=== PATIENT | male | born 1965 ===

== ENCOUNTER 2019-05-12 18:24 | Inpatient (IN) ==
[2019-05-12] MEDS: LORazepam 2 MG/1 ML VIAL IV PRN ×2 (20:30→20:40)
[2019-05-12] MEDS ORDERED: LORazepam 2 MG/1 ML VIAL ONE ×2 (20:34→20:39)
[2019-05-12] MEDS ORDERED: NICOTINE 21 MG/24 HR PATCH TRANSDERM PRN (21:10)
[2019-05-12] MEDS ORDERED: ONDANSETRON 4 MG/2 ML VIAL IV PRN (21:10)
[2019-05-12] MEDS ORDERED: ALBUTEROL 2.5 MG/3 ML NEB RESP TX PRN (21:10)
[2019-05-12] MEDS ORDERED: MORPHINE 4 MG/1 ML VIAL IV PRN (21:10)
[2019-05-12] MEDS ORDERED: PANTOPRAZOLE 40 MG VIAL IV SCH (21:30)
[2019-05-12] MEDS ORDERED: THIAMINE INJ 100 MG, FOLIC ACID INJ 1 MG, MULTIVITAMIN INJ 10 ML in SODIUM CHLORIDE 0.9... IV SCH (21:30)
[2019-05-12] MEDS ORDERED: SODIUM CHLORIDE 0.9% 1,000 ML IV SCH (21:30)
[2019-05-12 22:09] LABS: Basophils % 0.2 % (0.0-0.8); Hematocrit 37.5 VOL% (42.0-52.0); Hemoglobin 12.5 GM/DL (14.0-18.0); Immature Granulocytes % 0.1 %; Immature Granulocytes Absolute 0.02 #; Lymphocytes # 0.8 10*3/uL (1.4-4.0); Lymphocytes % 5.3 % (21.2-54.2); Mean Corpuscular HGB Conc 33.3 GM/DL (32-36); Mean Corpuscular Volume 94.5 FL (87-102); Mean Platelet Volume 11.2 FL (9.6-12.0); Monocytes % 4.2 % (1.7-12.7); Neutrophils % 90.2 % (38.7-73.9); Platelet Count 140 T/CUMM (130-400); Red Blood Count 3.97 MC/CUMM (3.8-5.5); Red Cell Distribution Width 14.6 % (9.3-17.3); White Blood Count 14.3 T/CUMM (4-12)
[2019-05-12 22:17] LABS: ABG Base Excess -0.1 MMOL/L (-2.5-2.5); ABG HCO3 24.3 MMOL/L (20-26); ABG Oxygen Saturation 97.2 % (95-100); ABG PCO2 43.4 MM HG (35-48); ABG PH 7.373 (7.35-7.45); ABG TCO2 22.4 MMOL/L (23-27); Allen Test Positive; Pt O2 Delivery Device Simple Mask
[2019-05-12 22:24] LABS: Albumin 3.6 G/DL (3.4-5.0); Bilirubin,Total 1.3 MG/DL (0.2-1.0); Calcium 8.2 MG/DL (8.5-10.1); Total Protein 7.2 G/DL (6.4-8.3)
[2019-05-12] MEDS: FAMOTIDINE 20 MG/2 ML VIAL IV SCH (22:32)
[2019-05-12] MEDS: ENOXAPARIN 40 MG/0.4 ML SYRINGE SUBCUT SCH (22:33)
[2019-05-12] MEDS: 1: THIAMINE INJ 100 MG, FOLIC ACID INJ 1 MG, MULTIVITAMIN INJ 10 ML in SODIUM CHLORIDE 0 IV SCH (22:40)
[2019-05-13] MEDS: LORazepam 2 MG/1 ML VIAL IV PRN ×3 (01:55→13:55)
[2019-05-13 05:23] LABS: Basophils % 0.3 % (0.0-0.8); Hematocrit 37.3 VOL% (42.0-52.0); Hemoglobin 11.8 GM/DL (14.0-18.0); Immature Granulocytes % 0.4 %; Immature Granulocytes Absolute 0.05 #; Lymphocytes # 1.3 10*3/uL (1.4-4.0); Lymphocytes % 11.2 % (21.2-54.2); Mean Corpuscular HGB Conc 31.6 GM/DL (32-36); Mean Corpuscular Volume 96.1 FL (87-102); Mean Platelet Volume 11.4 FL (9.6-12.0); Monocytes % 5.5 % (1.7-12.7); Neutrophils % 82.6 % (38.7-73.9); Platelet Count 134 T/CUMM (130-400); Red Blood Count 3.88 MC/CUMM (3.8-5.5); Red Cell Distribution Width 14.7 % (9.3-17.3); White Blood Count 11.9 T/CUMM (4-12)
[2019-05-13 05:53] LABS: Osmolality,Calculated 285.8 MOS/KG (273-304)
[2019-05-13 06:33] LABS: Apearance,Urine CLOUDY (Clear); Bacteria,Urine Occasional /HPF (Few); Bilirubin,Urine Negative (Negative); Blood, Urine Large mg/dL (Negative); Glucose,Urine (UA) Negative (Negative); Ketones,Urine 20 mg/dL (Negative); Mucus,Urine Many /LPF (Occasional); Nitrite,Urine Negative (Negative); Protein,Urine 100 MG/DL; RBC,Urine 2208 /HPF (0-4); Squamous Epithelial Cell,Urine Occasional /HPF (0-10); Uric Acid Crystals,Urine Occasional /HPF (<1); Urine Specific Gravity 1.018 (1.001-1.035); Urine Urobilinogen < 2.0 EU/DL (0.2-1.0); WBC,Urine 34 /HPF (0-6)
[2019-05-13 06:34] LABS: Urine Color Amber (Yellow)
[2019-05-13] MEDS: PHENYTOIN 100 MG/2 ML VIAL IV SCH ×2 (10:53→17:19)
[2019-05-13] MEDS: FAMOTIDINE 20 MG/2 ML VIAL IV SCH ×2 (10:54→22:03)
[2019-05-13] MEDS: 1: THIAMINE INJ 100 MG, FOLIC ACID INJ 1 MG, MULTIVITAMIN INJ 10 ML in SODIUM CHLORIDE 0 IV SCH ×2 (10:55→18:30)
[2019-05-13] MEDS ORDERED: METOPROLOL TARTRATE 5 MG/5 ML VIAL IV PRN (14:36)
[2019-05-13] MEDS ORDERED: PROPOFOL 200 MG/20 ML VIAL IV ONE ×2 (16:37→16:57)
[2019-05-13] MEDS ORDERED: SUCCINYLCHOLINE 200 MG/10 ML VIAL ONE (16:37)
[2019-05-13] MEDS ORDERED: SUCCINYLCHOLINE 200 MG/10 ML VIAL IV ONE (16:58)
[2019-05-13] MEDS ORDERED: PROPOFOL 1,000 MG/100 ML BOTTLE IV SCH (16:59)
[2019-05-13] MEDS ORDERED: PROPOFOL 1,000 MG/100 ML BOTTLE IV ONE (17:12)
[2019-05-13] MEDS: DIAZEPAM 5 MG TABLET PER TUBE SCH ×2 (17:18→21:50)
[2019-05-13] MEDS: PROPOFOL 1,000 MG/100 ML BOTTLE IV SCH (17:19)
[2019-05-13 17:33] LABS: Allen Test Positive; Pt O2 Delivery Device Ventilator
[2019-05-13 17:35] LABS: ABG Base Excess -0.8 MMOL/L (-2.5-2.5); ABG HCO3 23.6 MMOL/L (20-26); ABG Oxygen Saturation 98.5 % (95-100); ABG PCO2 38.6 MM HG (35-48); ABG PH 7.405 (7.35-7.45); ABG PO2 129.1 MM HG (80-95); ABG TCO2 24.8 MMOL/L (23-27)
[2019-05-13] MEDS: ENOXAPARIN 40 MG/0.4 ML SYRINGE SUBCUT SCH (22:02)
[2019-05-14] MEDS: PHENYTOIN 100 MG/2 ML VIAL IV SCH ×3 (01:46→17:03)
[2019-05-14] MEDS: LORazepam 2 MG/1 ML VIAL IV PRN ×3 (01:48→15:50)
[2019-05-14 04:46] LABS: Basophils % 0.3 % (0.0-0.8); Hematocrit 33.7 VOL% (42.0-52.0); Hemoglobin 10.9 GM/DL (14.0-18.0); Immature Granulocytes % 0.1 %; Immature Granulocytes Absolute 0.01 #; Lymphocytes # 1.3 10*3/uL (1.4-4.0); Lymphocytes % 16.2 % (21.2-54.2); Mean Corpuscular HGB Conc 32.3 GM/DL (32-36); Mean Corpuscular Volume 96.3 FL (87-102); Mean Platelet Volume 12.1 FL (9.6-12.0); Monocytes % 8.5 % (1.7-12.7); Neutrophils % 74.9 % (38.7-73.9); Platelet Count 121 T/CUMM (130-400); Red Cell Distribution Width 14.8 % (9.3-17.3); White Blood Count 7.9 T/CUMM (4-12)
[2019-05-14 04:49] LABS: ABG Base Excess 0.2 MMOL/L (-2.5-2.5); ABG HCO3 24.6 MMOL/L (20-26); ABG Oxygen Saturation 99.3 % (95-100); ABG PCO2 42.5 MM HG (35-48); ABG PH 7.385 (7.35-7.45); ABG TCO2 20.9 MMOL/L (23-27); Allen Test Positive; Pt O2 Delivery Device Ventilator
[2019-05-14 05:13] LABS: Calcium 8.1 MG/DL (8.5-10.1); Osmolality,Calculated 292.6 MOS/KG (273-304)
[2019-05-14] MEDS: 1: THIAMINE INJ 100 MG, FOLIC ACID INJ 1 MG, MULTIVITAMIN INJ 10 ML in SODIUM CHLORIDE 0 IV SCH ×3 (05:19→17:05)
[2019-05-14 05:47] LABS: Anisocytosis Slight; Microcytosis Slight; Platelet Estimate Adequate
[2019-05-14] MEDS: PROPOFOL 1,000 MG/100 ML BOTTLE IV SCH ×2 (09:57→23:00)
[2019-05-14] MEDS: FUROSEMIDE 40 MG/4 ML VIAL IV SCH ×2 (09:59→17:03)
[2019-05-14] MEDS: DIAZEPAM 5 MG TABLET PER TUBE SCH ×4 (09:59→21:12)
[2019-05-14] MEDS: FAMOTIDINE 20 MG/2 ML VIAL IV SCH ×2 (09:59→21:13)
[2019-05-14] MEDS ORDERED: DEXTROSE 50% 25 GM/50 ML VIAL IV PRN (11:12)
[2019-05-14] MEDS ORDERED: GLUCAGON 1 MG VIAL IM PRN (11:12)
[2019-05-14] MEDS: cefTRIAXone 1,000 MG in SYRINGE 1 EACH IV SCH (12:47)
[2019-05-14] MEDS: INSULIN REGULAR 100 UNIT/ML SUBCUT SCH ×2 (12:48→18:14)
[2019-05-14] MEDS: PHENobarbital 130 MG/1 ML VIAL IV SCH (19:47)
[2019-05-14] MEDS: ENOXAPARIN 40 MG/0.4 ML SYRINGE SUBCUT SCH (21:12)
[2019-05-15] MEDS: INSULIN REGULAR 100 UNIT/ML SUBCUT SCH ×4 (00:30→18:34)
[2019-05-15] MEDS: PHENYTOIN 100 MG/2 ML VIAL IV SCH ×3 (02:16→16:33)
[2019-05-15] MEDS: 1: THIAMINE INJ 100 MG, FOLIC ACID INJ 1 MG, MULTIVITAMIN INJ 10 ML in SODIUM CHLORIDE 0 IV SCH ×3 (03:12→13:03)
[2019-05-15 04:33] LABS: ABG Base Excess 3.7 MMOL/L (-2.5-2.5); ABG HCO3 27.6 MMOL/L (20-26); ABG Oxygen Saturation 98.7 % (95-100); ABG PCO2 39.2 MM HG (35-48); ABG PH 7.466 (7.35-7.45); ABG PO2 133.4 MM HG (80-95); ABG TCO2 28.8 MMOL/L (23-27); Allen Test Positive; Pt O2 Delivery Device Ventilator
[2019-05-15 05:03] LABS: Basophils % 0.4 % (0.0-0.8); Eosinophils # 0.1 10*3/uL (0.0-0.87); Eosinophils % 0.7 % (0.00-10.9); Hematocrit 34.8 VOL% (42.0-52.0); Hemoglobin 10.8 GM/DL (14.0-18.0); Immature Granulocytes % 0.4 %; Immature Granulocytes Absolute 0.03 #; Lymphocytes # 1.2 10*3/uL (1.4-4.0); Lymphocytes % 17.4 % (21.2-54.2); Mean Corpuscular Volume 97.5 FL (87-102); Mean Platelet Volume 11.8 FL (9.6-12.0); Monocytes % 7.6 % (1.7-12.7); Neutrophils % 73.5 % (38.7-73.9); Platelet Count 124 T/CUMM (130-400); Red Blood Count 3.57 MC/CUMM (3.8-5.5); Red Cell Distribution Width 14.4 % (9.3-17.3); White Blood Count 6.9 T/CUMM (4-12)
[2019-05-15 05:39] LABS: Calcium 8.4 MG/DL (8.5-10.1); Osmolality,Calculated 291.6 MOS/KG (273-304)
[2019-05-15 05:43] LABS: Prealbumin 12.1 MG/DL (20-40)
[2019-05-15] MEDS: PROPOFOL 1,000 MG/100 ML BOTTLE IV SCH ×3 (08:46→23:50)
[2019-05-15] MEDS: DIAZEPAM 5 MG TABLET PER TUBE SCH ×4 (09:04→20:18)
[2019-05-15] MEDS: PHENobarbital 130 MG/1 ML VIAL IV SCH ×2 (09:04→20:18)
[2019-05-15] MEDS: FUROSEMIDE 40 MG/4 ML VIAL IV SCH ×2 (09:07→15:22)
[2019-05-15] MEDS: FAMOTIDINE 20 MG/2 ML VIAL IV SCH ×2 (09:38→20:18)
[2019-05-15] MEDS: cefTRIAXone 1,000 MG in SYRINGE 1 EACH IV SCH (11:29)
[2019-05-15] MEDS: POTASSIUM PHOS/SOD PHOS 250 MG TABLET PER TUBE SCH ×3 (11:29→18:34)
[2019-05-15] MEDS: POTASSIUM CHLORIDE 20 MEQ/15 ML UDCUP PER TUBE SCH (20:18)
[2019-05-15] MEDS: ENOXAPARIN 40 MG/0.4 ML SYRINGE SUBCUT SCH (20:18)
[2019-05-16] MEDS: PHENYTOIN 100 MG/2 ML VIAL IV SCH ×3 (01:07→17:21)
[2019-05-16] MEDS: 1: THIAMINE INJ 100 MG, FOLIC ACID INJ 1 MG, MULTIVITAMIN INJ 10 ML in SODIUM CHLORIDE 0 IV SCH ×4 (01:08→17:47)
[2019-05-16] MEDS: INSULIN REGULAR 100 UNIT/ML SUBCUT SCH ×4 (01:08→17:21)
[2019-05-16] MEDS: POTASSIUM CHLORIDE 20 MEQ/15 ML UDCUP PER TUBE SCH ×5 (01:08→20:23)
[2019-05-16 03:47] LABS: ABG Base Excess 6.3 MMOL/L (-2.5-2.5); ABG HCO3 30.1 MMOL/L (20-26); ABG Oxygen Saturation 95.6 % (95-100); ABG PCO2 44.3 MM HG (35-48); ABG PH 7.453 (7.35-7.45); ABG PO2 75.1 MM HG (80-95); ABG TCO2 27.7 MMOL/L (23-27); Allen Test Positive; Pt O2 Delivery Device Ventilator
[2019-05-16 03:52] LABS: Basophils % 0.5 % (0.0-0.8); Eosinophils # 0.1 10*3/uL (0.0-0.87); Hematocrit 31.2 VOL% (42.0-52.0); Hemoglobin 10.1 GM/DL (14.0-18.0); Immature Granulocytes % 0.5 %; Immature Granulocytes Absolute 0.04 #; Lymphocytes # 1.4 10*3/uL (1.4-4.0); Lymphocytes % 17.1 % (21.2-54.2); Mean Corpuscular HGB Conc 32.4 GM/DL (32-36); Mean Corpuscular Volume 94.5 FL (87-102); Mean Platelet Volume 11.7 FL (9.6-12.0); Monocytes % 9.7 % (1.7-12.7); Neutrophils % 71.2 % (38.7-73.9); Platelet Count 133 T/CUMM (130-400); Red Cell Distribution Width 14.1 % (9.3-17.3); White Blood Count 8.1 T/CUMM (4-12)
[2019-05-16 04:10] LABS: Calcium 7.9 MG/DL (8.5-10.1); Osmolality,Calculated 286.7 MOS/KG (273-304)
[2019-05-16] MEDS: PROPOFOL 1,000 MG/100 ML BOTTLE IV SCH ×4 (07:36→21:32)
[2019-05-16] MEDS ORDERED: MAGNESIUM SULF RIDER 4 GM in PREMIX 1 EACH IV ONE (08:22)
[2019-05-16] MEDS: PHENobarbital 130 MG/1 ML VIAL IV SCH ×2 (09:13→20:23)
[2019-05-16] MEDS: DIAZEPAM 5 MG TABLET PER TUBE SCH ×4 (09:13→20:24)
[2019-05-16] MEDS: FUROSEMIDE 40 MG/4 ML VIAL IV SCH ×2 (09:16→15:25)
[2019-05-16] MEDS: FAMOTIDINE 20 MG/2 ML VIAL IV SCH ×2 (09:19→20:23)
[2019-05-16] MEDS: cefTRIAXone 1,000 MG in SYRINGE 1 EACH IV SCH (11:57)
[2019-05-16] MEDS: ENOXAPARIN 40 MG/0.4 ML SYRINGE SUBCUT SCH (20:23)
[2019-05-17] MEDS: INSULIN REGULAR 100 UNIT/ML SUBCUT SCH ×4 (00:39→17:35)
[2019-05-17] MEDS: PHENYTOIN 100 MG/2 ML VIAL IV SCH ×3 (02:08→17:41)
[2019-05-17 03:44] LABS: ABG Base Excess 6.3 MMOL/L (-2.5-2.5); ABG HCO3 30.9 MMOL/L (20-26); ABG Oxygen Saturation 97.8 % (95-100); ABG PCO2 44.7 MM HG (35-48); ABG PH 7.458 (7.35-7.45); ABG PO2 109.2 MM HG (80-95); ABG TCO2 32.3 MMOL/L (23-27); Allen Test Positive; Pt O2 Delivery Device Ventilator
[2019-05-17 03:47] LABS: Basophils % 0.5 % (0.0-0.8); Eosinophils # 0.2 10*3/uL (0.0-0.87); Eosinophils % 1.8 % (0.00-10.9); Hematocrit 30.9 VOL% (42.0-52.0); Hemoglobin 9.8 GM/DL (14.0-18.0); Immature Granulocytes % 0.2 %; Immature Granulocytes Absolute 0.02 #; Lymphocytes # 1.8 10*3/uL (1.4-4.0); Lymphocytes % 21.6 % (21.2-54.2); Mean Corpuscular HGB Conc 31.7 GM/DL (32-36); Mean Corpuscular Volume 94.8 FL (87-102); Mean Platelet Volume 11.9 FL (9.6-12.0); Monocytes % 9.4 % (1.7-12.7); Neutrophils % 66.5 % (38.7-73.9); Platelet Count 133 T/CUMM (130-400); Red Blood Count 3.26 MC/CUMM (3.8-5.5); Red Cell Distribution Width 14.4 % (9.3-17.3); White Blood Count 8.5 T/CUMM (4-12)
[2019-05-17 04:03] LABS: Calcium 7.9 MG/DL (8.5-10.1); Osmolality,Calculated 288.7 MOS/KG (273-304)
[2019-05-17] MEDS: PROPOFOL 1,000 MG/100 ML BOTTLE IV SCH ×3 (05:47→20:50)
[2019-05-17] MEDS: 1: THIAMINE INJ 100 MG, FOLIC ACID INJ 1 MG, MULTIVITAMIN INJ 10 ML in SODIUM CHLORIDE 0 IV SCH ×4 (05:49→20:39)
[2019-05-17] MEDS: PHENobarbital 130 MG/1 ML VIAL IV SCH ×2 (08:03→20:37)
[2019-05-17] MEDS: FUROSEMIDE 40 MG/4 ML VIAL IV SCH ×2 (08:06→17:34)
[2019-05-17] MEDS: FAMOTIDINE 20 MG/2 ML VIAL IV SCH ×2 (08:09→20:38)
[2019-05-17] MEDS: DIAZEPAM 5 MG TABLET PER TUBE SCH ×4 (08:14→20:38)
[2019-05-17] MEDS: POTASSIUM CHLORIDE 20 MEQ/15 ML UDCUP PER TUBE SCH ×3 (09:44→17:35)
[2019-05-17] MEDS: cefTRIAXone 1,000 MG in SYRINGE 1 EACH IV SCH (12:02)
[2019-05-17] MEDS: ENOXAPARIN 40 MG/0.4 ML SYRINGE SUBCUT SCH (20:38)
[2019-05-18] MEDS: INSULIN REGULAR 100 UNIT/ML SUBCUT SCH ×4 (01:50→18:28)
[2019-05-18] MEDS: PHENYTOIN 100 MG/2 ML VIAL IV SCH ×3 (01:50→17:24)
[2019-05-18] MEDS: 1: THIAMINE INJ 100 MG, FOLIC ACID INJ 1 MG, MULTIVITAMIN INJ 10 ML in SODIUM CHLORIDE 0 IV SCH ×4 (01:50→22:08)
[2019-05-18 03:36] LABS: ABG Base Excess 6.3 MMOL/L (-2.5-2.5); ABG HCO3 30.2 MMOL/L (20-26); ABG Oxygen Saturation 95.8 % (95-100); ABG PCO2 41.8 MM HG (35-48); ABG PH 7.472 (7.35-7.45); ABG PO2 76.9 MM HG (80-95); ABG TCO2 27.8 MMOL/L (23-27); Allen Test Positive; Pt O2 Delivery Device Ventilator
[2019-05-18 05:40] LABS: Calcium 8.1 MG/DL (8.5-10.1); Osmolality,Calculated 291.4 MOS/KG (273-304)
[2019-05-18 05:56] LABS: Prealbumin 15.3 MG/DL (20-40)
[2019-05-18] MEDS: PROPOFOL 1,000 MG/100 ML BOTTLE IV SCH ×3 (05:59→22:07)
[2019-05-18 06:00] LABS: Basophils % 0.4 % (0.0-0.8); Eosinophils # 0.3 10*3/uL (0.0-0.87); Eosinophils % 2.5 % (0.00-10.9); Hematocrit 31.8 VOL% (42.0-52.0); Hemoglobin 10.1 GM/DL (14.0-18.0); Immature Granulocytes % 0.7 %; Immature Granulocytes Absolute 0.07 #; Lymphocytes % 19.3 % (21.2-54.2); Mean Corpuscular HGB Conc 31.8 GM/DL (32-36); Mean Corpuscular Volume 96.4 FL (87-102); Mean Platelet Volume 11.1 FL (9.6-12.0); Monocytes % 8.7 % (1.7-12.7); Neutrophils % 68.4 % (38.7-73.9); Platelet Count 154 T/CUMM (130-400); Red Cell Distribution Width 14.2 % (9.3-17.3); White Blood Count 10.3 T/CUMM (4-12)
[2019-05-18] MEDS: PHENobarbital 130 MG/1 ML VIAL IV SCH ×2 (09:44→20:21)
[2019-05-18] MEDS: FUROSEMIDE 40 MG/4 ML VIAL IV SCH ×2 (09:49→17:24)
[2019-05-18] MEDS: FAMOTIDINE 20 MG/2 ML VIAL IV SCH ×2 (09:50→20:22)
[2019-05-18] MEDS: DIAZEPAM 5 MG TABLET PER TUBE SCH ×4 (09:51→20:22)
[2019-05-18] MEDS: cefTRIAXone 1,000 MG in SYRINGE 1 EACH IV SCH (12:15)
[2019-05-18] MEDS: ENOXAPARIN 40 MG/0.4 ML SYRINGE SUBCUT SCH (20:22)
[2019-05-19] MEDS: PHENYTOIN 100 MG/2 ML VIAL IV SCH ×3 (01:11→16:35)
[2019-05-19] MEDS: INSULIN REGULAR 100 UNIT/ML SUBCUT SCH ×4 (01:11→18:44)
[2019-05-19] MEDS: 1: THIAMINE INJ 100 MG, FOLIC ACID INJ 1 MG, MULTIVITAMIN INJ 10 ML in SODIUM CHLORIDE 0 IV SCH ×2 (03:15→10:34)
[2019-05-19 04:22] LABS: Basophils % 0.5 % (0.0-0.8); Eosinophils # 0.2 10*3/uL (0.0-0.87); Eosinophils % 2.1 % (0.00-10.9); Hematocrit 30.1 VOL% (42.0-52.0); Hemoglobin 9.5 GM/DL (14.0-18.0); Immature Granulocytes % 0.5 %; Immature Granulocytes Absolute 0.04 #; Lymphocytes # 2.3 10*3/uL (1.4-4.0); Lymphocytes % 27.3 % (21.2-54.2); Mean Corpuscular HGB Conc 31.6 GM/DL (32-36); Mean Corpuscular Volume 95.9 FL (87-102); Mean Platelet Volume 11.3 FL (9.6-12.0); Monocytes % 9.7 % (1.7-12.7); Neutrophils % 59.9 % (38.7-73.9); Platelet Count 181 T/CUMM (130-400); Red Blood Count 3.14 MC/CUMM (3.8-5.5); Red Cell Distribution Width 14.1 % (9.3-17.3); White Blood Count 8.5 T/CUMM (4-12)
[2019-05-19 04:25] LABS: ABG Base Excess 6.9 MMOL/L (-2.5-2.5); ABG Oxygen Saturation 98.4 % (95-100); ABG PCO2 37.1 MM HG (35-48); ABG PH 7.526 (7.35-7.45); ABG PO2 129.4 MM HG (80-95); ABG TCO2 31.2 MMOL/L (23-27); Allen Test Positive; Pt O2 Delivery Device Ventilator
[2019-05-19 04:34] LABS: Calcium 8.1 MG/DL (8.5-10.1); Osmolality,Calculated 287.7 MOS/KG (273-304)
[2019-05-19] MEDS: PROPOFOL 1,000 MG/100 ML BOTTLE IV SCH (05:30)
[2019-05-19] MEDS: PHENobarbital 130 MG/1 ML VIAL IV SCH ×2 (09:13→21:33)
[2019-05-19] MEDS: DIAZEPAM 5 MG TABLET PER TUBE SCH ×3 (09:13→22:55)
[2019-05-19] MEDS: FUROSEMIDE 40 MG/4 ML VIAL IV SCH ×2 (09:14→16:19)
[2019-05-19] MEDS: FAMOTIDINE 20 MG/2 ML VIAL IV SCH ×2 (09:15→21:33)
[2019-05-19] MEDS ORDERED: POTASSIUM CHLORIDE 20 MEQ/15 ML UDCUP PO ONE (10:06)
[2019-05-19] MEDS: cefTRIAXone 1,000 MG in SYRINGE 1 EACH IV SCH (12:17)
[2019-05-19] MEDS: ENOXAPARIN 40 MG/0.4 ML SYRINGE SUBCUT SCH (21:33)
[2019-05-20] MEDS: INSULIN REGULAR 100 UNIT/ML SUBCUT SCH ×4 (00:36→18:11)
[2019-05-20] MEDS: PHENYTOIN 100 MG/2 ML VIAL IV SCH ×2 (02:27→09:10)
[2019-05-20] MEDS: DIAZEPAM 5 MG TABLET PER TUBE SCH ×2 (08:11→23:10)
[2019-05-20] MEDS: FUROSEMIDE 40 MG/4 ML VIAL IV SCH (08:11)
[2019-05-20] MEDS: PHENobarbital 130 MG/1 ML VIAL IV SCH (08:14)
[2019-05-20] MEDS: FAMOTIDINE 20 MG/2 ML VIAL IV SCH (08:18)
[2019-05-20 09:28] LABS: Calcium 8.8 MG/DL (8.5-10.1); Osmolality,Calculated 276.4 MOS/KG (273-304)
[2019-05-20] MEDS: cefTRIAXone 1,000 MG in SYRINGE 1 EACH IV SCH (10:43)
[2019-05-20] MEDS: FUROSEMIDE 40 MG TABLET PO SCH (15:34)
[2019-05-20] MEDS: PHENYTOIN ER 100 MG CAPSULE PO SCH ×2 (15:34→23:11)
[2019-05-20] MEDS: PHENobarbital 30 MG TABLET PO SCH (23:11)
[2019-05-20] MEDS: ENOXAPARIN 40 MG/0.4 ML SYRINGE SUBCUT SCH (23:11)
[2019-05-20] MEDS: levETIRAcetam 500 MG TABLET PO SCH (23:11)
[2019-05-21] MEDS: INSULIN REGULAR 100 UNIT/ML SUBCUT SCH ×4 (05:00→18:36)
[2019-05-21 05:26] LABS: Calcium 8.6 MG/DL (8.5-10.1)
[2019-05-21 05:49] LABS: Prealbumin 21.2 MG/DL (20-40)
[2019-05-21] MEDS: levETIRAcetam 500 MG TABLET PO SCH ×2 (10:26→20:56)
[2019-05-21] MEDS: PHENobarbital 30 MG TABLET PO SCH ×2 (10:27→20:56)
[2019-05-21] MEDS: FUROSEMIDE 40 MG TABLET PO SCH ×2 (10:27→17:09)
[2019-05-21] MEDS: DIAZEPAM 5 MG TABLET PER TUBE SCH (10:27)
[2019-05-21] MEDS: PHENYTOIN ER 100 MG CAPSULE PO SCH ×3 (10:27→20:56)
[2019-05-21] MEDS: POTASSIUM CHLORIDE 20 MEQ/15 ML UDCUP PER TUBE PRN ×2 (10:35→13:57)
[2019-05-21] MEDS ORDERED: LORazepam 2 MG/1 ML VIAL IV ONE (15:00)
[2019-05-21] MEDS ORDERED: TUBERCULIN SKIN TEST 0.1 ML SYRINGE INTRADERM ONE (15:02)
[2019-05-21] MEDS: ENOXAPARIN 40 MG/0.4 ML SYRINGE SUBCUT SCH (20:57)
[2019-05-21] MEDS: DIAZEPAM 5 MG TABLET PO SCH (20:57)
[2019-05-22] MEDS: INSULIN REGULAR 100 UNIT/ML SUBCUT SCH ×4 (01:11→17:16)
[2019-05-22 05:32] LABS: Basophils % 0.4 % (0.0-0.8); Eosinophils # 0.2 10*3/uL (0.0-0.87); Eosinophils % 1.8 % (0.00-10.9); Hematocrit 32.9 VOL% (42.0-52.0); Hemoglobin 10.5 GM/DL (14.0-18.0); Immature Granulocytes % 0.5 %; Immature Granulocytes Absolute 0.04 #; Lymphocytes # 1.6 10*3/uL (1.4-4.0); Lymphocytes % 18.9 % (21.2-54.2); Mean Corpuscular HGB Conc 31.9 GM/DL (32-36); Mean Corpuscular Volume 94.3 FL (87-102); Mean Platelet Volume 11.1 FL (9.6-12.0); Monocytes % 8.6 % (1.7-12.7); Neutrophils % 69.8 % (38.7-73.9); Platelet Count 270 T/CUMM (130-400); Red Blood Count 3.49 MC/CUMM (3.8-5.5); Red Cell Distribution Width 13.6 % (9.3-17.3); White Blood Count 8.4 T/CUMM (4-12)
[2019-05-22 05:52] LABS: Calcium 8.4 MG/DL (8.5-10.1); Osmolality,Calculated 279.1 MOS/KG (273-304)
[2019-05-22] MEDS ORDERED: LORazepam 2 MG/1 ML VIAL IV ONE ×2 (07:42→15:19)
[2019-05-22] MEDS ORDERED: MAGNESIUM SULF RIDER 4 GM in PREMIX 1 EACH IV PRN (08:14)
[2019-05-22] MEDS ORDERED: MAGNESIUM SULF RIDER 2 GM in PREMIX 1 EACH IV PRN (08:14)
[2019-05-22] MEDS: POTASSIUM CHLORIDE RIDER 10 MEQ in PREMIX 1 EACH IV PRN ×5 (08:48→15:55)
[2019-05-22] MEDS: FUROSEMIDE 40 MG TABLET PO SCH (11:41)
[2019-05-22] MEDS: PHENobarbital 30 MG TABLET PO SCH ×2 (11:42→21:11)
[2019-05-22] MEDS: DIAZEPAM 5 MG TABLET PO SCH ×2 (11:42→21:11)
[2019-05-22] MEDS: PHENYTOIN ER 100 MG CAPSULE PO SCH ×3 (11:42→21:11)
[2019-05-22] MEDS: FOLIC ACID 1 MG TABLET PO SCH (11:42)
[2019-05-22] MEDS: MULTIVITAMIN (CENTRUM) TABLET PO SCH (11:42)
[2019-05-22] MEDS: levETIRAcetam 500 MG TABLET PO SCH ×2 (11:42→21:10)
[2019-05-22] MEDS: THIAMINE 100 MG TABLET PO SCH (11:42)
[2019-05-22] MEDS: POTASSIUM BICARB EFFERVESCENT 25 MEQ TABLET PO SCH ×2 (15:19→21:10)
[2019-05-22] MEDS: ENOXAPARIN 40 MG/0.4 ML SYRINGE SUBCUT SCH (21:10)
[2019-05-23] MEDS ORDERED: HALOPERIDOL 5 MG/ML AMP IV ONE (00:23)
[2019-05-23] MEDS: INSULIN REGULAR 100 UNIT/ML SUBCUT SCH ×5 (00:28→23:05)
[2019-05-23 05:21] LABS: Calcium 8.4 MG/DL (8.5-10.1)
[2019-05-23] MEDS: POTASSIUM CHLORIDE RIDER 10 MEQ in PREMIX 1 EACH IV PRN ×2 (06:15→07:22)
[2019-05-23] MEDS ORDERED: HALOPERIDOL 5 MG/ML AMP IM PRN (07:55)
[2019-05-23] MEDS ORDERED: LORazepam 2 MG/1 ML VIAL IV ONE (11:11)
[2019-05-23] MEDS: FUROSEMIDE 40 MG TABLET PO SCH (12:41)
[2019-05-23] MEDS: levETIRAcetam 500 MG TABLET PO SCH ×2 (12:42→20:58)
[2019-05-23] MEDS: POTASSIUM CHLORIDE 20 MEQ TABLET PO SCH (12:42)
[2019-05-23] MEDS: MULTIVITAMIN (CENTRUM) TABLET PO SCH (12:42)
[2019-05-23] MEDS: PHENYTOIN ER 100 MG CAPSULE PO SCH ×3 (12:42→20:58)
[2019-05-23] MEDS: FOLIC ACID 1 MG TABLET PO SCH (12:42)
[2019-05-23] MEDS: PHENobarbital 30 MG TABLET PO SCH ×2 (12:42→20:58)
[2019-05-23] MEDS: DIAZEPAM 5 MG TABLET PO SCH ×2 (12:42→20:59)
[2019-05-23] MEDS: THIAMINE 100 MG TABLET PO SCH (12:43)
[2019-05-23] MEDS: POTASSIUM BICARB EFFERVESCENT 25 MEQ TABLET PO SCH ×2 (12:47→20:57)
[2019-05-23] MEDS: ENOXAPARIN 40 MG/0.4 ML SYRINGE SUBCUT SCH (20:58)
[2019-05-23] MEDS: LORazepam 2 MG/1 ML VIAL IV PRN (20:58)
[2019-05-24] MEDS: INSULIN REGULAR 100 UNIT/ML SUBCUT SCH ×4 (06:02→23:56)
[2019-05-24] MEDS: LORazepam 2 MG/1 ML VIAL IV PRN ×2 (08:11→21:14)
[2019-05-24] MEDS: THIAMINE 100 MG TABLET PO SCH (11:51)
[2019-05-24] MEDS: MULTIVITAMIN (CENTRUM) TABLET PO SCH (11:51)
[2019-05-24] MEDS: DIAZEPAM 5 MG TABLET PO SCH ×2 (11:51→21:12)
[2019-05-24] MEDS: PHENobarbital 30 MG TABLET PO SCH ×2 (11:51→21:12)
[2019-05-24] MEDS: POTASSIUM BICARB EFFERVESCENT 25 MEQ TABLET PO SCH (11:51)
[2019-05-24] MEDS: FOLIC ACID 1 MG TABLET PO SCH (11:51)
[2019-05-24] MEDS: FUROSEMIDE 40 MG TABLET PO SCH (11:51)
[2019-05-24] MEDS: levETIRAcetam 500 MG TABLET PO SCH ×2 (11:51→21:11)
[2019-05-24] MEDS: PHENYTOIN ER 100 MG CAPSULE PO SCH ×3 (11:52→21:11)
[2019-05-24] MEDS: POTASSIUM CHLORIDE 20 MEQ TABLET PO SCH (11:54)
[2019-05-24] MEDS: ZIPRASIDONE 20 MG/1 ML VIAL IM PRN ×2 (14:55→23:27)
[2019-05-24] MEDS ORDERED: ALBUTEROL 2.5 MG/3 ML NEB RESP TX SCH (19:00)
[2019-05-24] MEDS: ALBUTEROL 2.5 MG/3 ML NEB RESP TX SCH (19:05)
[2019-05-24] MEDS: ENOXAPARIN 40 MG/0.4 ML SYRINGE SUBCUT SCH (21:16)
[2019-05-25] MEDS: ALBUTEROL 2.5 MG/3 ML NEB RESP TX SCH ×4 (00:09→19:20)
[2019-05-25 05:49] LABS: Basophils % 0.3 % (0.0-0.8); Eosinophils # 0.3 10*3/uL (0.0-0.87); Eosinophils % 2.2 % (0.00-10.9); Hematocrit 35.6 VOL% (42.0-52.0); Hemoglobin 11.5 GM/DL (14.0-18.0); Immature Granulocytes % 0.3 %; Immature Granulocytes Absolute 0.04 #; Lymphocytes # 2.8 10*3/uL (1.4-4.0); Lymphocytes % 24.3 % (21.2-54.2); Mean Corpuscular HGB Conc 32.3 GM/DL (32-36); Mean Corpuscular Volume 95.2 FL (87-102); Mean Platelet Volume 11.5 FL (9.6-12.0); Monocytes % 5.7 % (1.7-12.7); Neutrophils % 67.2 % (38.7-73.9); Platelet Count 301 T/CUMM (130-400); Red Blood Count 3.74 MC/CUMM (3.8-5.5); Red Cell Distribution Width 14.5 % (9.3-17.3); White Blood Count 11.5 T/CUMM (4-12)
[2019-05-25 06:09] LABS: Calcium 8.9 MG/DL (8.5-10.1); Osmolality,Calculated 281.8 MOS/KG (273-304)
[2019-05-25] MEDS: INSULIN REGULAR 100 UNIT/ML SUBCUT SCH ×3 (06:38→17:48)
[2019-05-25] MEDS: DIAZEPAM 5 MG TABLET PO SCH ×2 (09:04→20:36)
[2019-05-25] MEDS: PHENYTOIN ER 100 MG CAPSULE PO SCH ×3 (09:05→20:35)
[2019-05-25] MEDS: THIAMINE 100 MG TABLET PO SCH (09:05)
[2019-05-25] MEDS: MULTIVITAMIN (CENTRUM) TABLET PO SCH (09:05)
[2019-05-25] MEDS: FOLIC ACID 1 MG TABLET PO SCH (09:05)
[2019-05-25] MEDS: levETIRAcetam 500 MG TABLET PO SCH ×2 (09:05→20:35)
[2019-05-25] MEDS: FUROSEMIDE 40 MG TABLET PO SCH (09:05)
[2019-05-25] MEDS: POTASSIUM CHLORIDE 20 MEQ TABLET PO SCH (09:06)
[2019-05-25] MEDS: PHENobarbital 30 MG TABLET PO SCH ×2 (09:06→20:36)
[2019-05-25] MEDS: ENOXAPARIN 40 MG/0.4 ML SYRINGE SUBCUT SCH (20:38)
[2019-05-25] MEDS: ZIPRASIDONE 20 MG/1 ML VIAL IM PRN (20:42)
[2019-05-26] MEDS: INSULIN REGULAR 100 UNIT/ML SUBCUT SCH ×2 (00:38→06:10)
[2019-05-26] MEDS: ALBUTEROL 2.5 MG/3 ML NEB RESP TX SCH ×2 (01:07→07:03)
[2019-05-26] MEDS: THIAMINE 100 MG TABLET PO SCH (09:58)
[2019-05-26] MEDS: PHENYTOIN ER 100 MG CAPSULE PO SCH (09:58)
[2019-05-26] MEDS: MULTIVITAMIN (CENTRUM) TABLET PO SCH (09:59)
[2019-05-26] MEDS: levETIRAcetam 500 MG TABLET PO SCH (09:59)
[2019-05-26] MEDS: DIAZEPAM 5 MG TABLET PO SCH (09:59)
[2019-05-26] MEDS: PHENobarbital 30 MG TABLET PO SCH (09:59)
[2019-05-26] MEDS: POTASSIUM CHLORIDE 20 MEQ TABLET PO SCH (09:59)
[2019-05-26] MEDS: FUROSEMIDE 40 MG TABLET PO SCH (09:59)
[2019-05-26] MEDS: FOLIC ACID 1 MG TABLET PO SCH (09:59)
[2019-05-26 11:41] VITALS: BP 107/72
== END 2019-05-26 12:48 | DRG 100 ==
LOC: SUATTDRO 20:33 → N.CC 20:33 → N.2E 05-20 11:44
PROVIDERS: ADMIT Internal Medicine; ATTEND Internal Medicine